=== PATIENT | male | born 1980 | race Caucasian/White ===

== ENCOUNTER → 2017-06-24 | Outpatient (CLI) | payer MEDICARE, OTHER ==
[~2017-06-24] MED LIST: ALLEGRA PO; EC-NAPROSYN500 MG PO; FLONASE16 GM; RISPERIDONE PO; TOPROL XL PO
--- NOTE | ~2017-06-24 | US128 ---
[id number] [address] [id number] O MR#: [id number] Acc #: [id number] NAME: KRISHNA ALVAREZ : 1980 SEX: M STUDY DATE/TIME: 06/24/2017 12:43 UNIT: [facility] ROOM: STUDY DESCRIPTION: Thyroid Attending Physician: Federico Scott Aprn Referring Physician: Federico Scott Aprn Ordering Physician: Federico Scott Aprn Primary Care Physician: Federico Scott Aprn MEDICAL IMAGING REPORT This report is preliminary unless electronic signature is present. EXAM Thyroid ultrasound, 06/24/2017. HISTORY Hyperthyroidism. FINDINGS The right thyroid lobe measured 4.5 cm x 2.5 cm x 1.9 cm while the left lobe measured 1.8 cm x 1.6 cm x 5 cm. The isthmus measured 6 mm in the AP direction. There is a 3 mm nodule in the mid-right thyroid lobe and a 6 mm nodule is seen in the lower pole of the right thyroid lobe. There is a 2.1 cm x 1.9 cm mass which appears solid which is either extrinsic to the upper pole of the right thyroid lobe or extending off the medial aspect of the upper pole of the left lobe. Correlation with ultrasound-guided fine needle aspiration of this nodule is recommended to exclude thyroid neoplasm. Normal blood flow is seen throughout both thyroid lobes. IMPRESSION 2.1 cm hypoechoic mass which is either extrinsic to the upper pole of the left thyroid lobe or extends off the medial aspect of the upper pole of the left thyroid lobe. Correlation with ultrasound-guided fine needle aspiration of the nodule is recommended to exclude thyroid neoplasm. Note is made that this finding is new compared with the previous examination 09/22/2016. STAT * RESULT Dictated by... Negro Medel M.D. THIS IS AN ELECTRONICALLY VERIFIED REPORT Negro Medel M.D. at 06/24/2017 4:52 PM HARVEY/jessica TD: 06/24/2017 16:02 JOB #: [id number] MEDICAL IMAGING REPORT Page 1 of 1
== END | disposition home or self-care (01) ==
LOC: SGUS 12:38
DX: E04.1 Nontoxic single thyroid nodule (principal); E07.89 Other specified disorders of thyroid
CPT/HCPCS: 76536